=== PATIENT | female | born 1945 | race Caucasian/White ===

== ENCOUNTER 2021-11-08 19:28 | Inpatient (IN) | payer MEDICARE, MEDICAID ==
[~2021-11-08] VITALS: Ht 157.5 cm; Wt 78.9 kg
[~2021-11-08 19:28] MED LIST: [UNRECOGNIZED DRUG - REMARK] PO
[2021-11-08] MEDS ORDERED: FURO40 PO (20:15)
[2021-11-08] MEDS ORDERED: AMLO-257 PO (20:15)
[2021-11-08] MEDS ORDERED: APIX5TAB PO (20:15)
[2021-11-08] MEDS ORDERED: METH-387 PO (20:15)
[2021-11-08] MEDS ORDERED: LOSA-382 PO (20:15)
[2021-11-08] MEDS ORDERED: TRAM50TA4 PO (20:15)
[2021-11-08] MEDS ORDERED: MECL-160 PO (20:15)
[2021-11-08] MEDS ORDERED: CARV3 PO (20:15)
[2021-11-08] MEDS ORDERED: DIAZ2 PO (20:15)
[2021-11-08 20:31] LABS: BASOPHILS % (AUTO) 1.1 % (0.0-2.0); HEMATOCRIT 38.1 % (36-46); LYMPHOCYTES # (AUTO) 2.6 K/uL (1.0-4.8); MEAN CORPUSCULAR HEMOGLOBIN 29.6 pg (26.0-34.0); MEAN CORPUSCULAR HGB CONC 34.1 G/dL (31.0-37.0); MEAN CORPUSCULAR VOLUME 87 fL (80-100); MONOCYTES # (AUTO) 0.3 K/uL (0.1-1.0); MONOCYTES % (AUTO) 6.4 % (2.0-9.0); NEUTROPHILS # (AUTO) 1.5 K/uL (1.8-7.7); NEUTROPHILS % (AUTO) 33.5 % (40.0-70.0); PLATELET COUNT (AUTO) 117 K/uL (150-450); RED BLOOD CELL COUNT(AUTO) 4.39 MIL/uL (4.00-5.20); RED CELL DISTRIBUTION WIDTH 20.3 % (11.5-14.5)
[2021-11-08 20:52] LABS: ALBUMIN 2.9 g/dL (3.4-5.0); BILIRUBIN,TOTAL 1.8 mg/dL (0.1-1.0); CALCIUM, TOTAL 8.9 mg/dL (8.8-10.5); THYROID STIMULATING HORMONE 157.84 uIU/mL (0.36-3.74); TOTAL PROTEIN, SERUM 7.3 g/dL (6.4-8.2)
[2021-11-08 21:06] LABS: POTASSIUM 2.7 mmol/L (3.5-5.1)
[2021-11-08] MEDS ORDERED: POTASSIUM CHLORIDE 20 MEQ ER TABLET PO PRN (21:15)
[2021-11-08] MEDS ORDERED: ACETAMINOPHEN 325 MG TABLET PO PRN (21:15)
[2021-11-08] MEDS ORDERED: ONDANSETRON HCL 4 MG/2 ML VIAL IVP PRN (21:15)
[2021-11-08 21:54] LABS: COVID AG,FIA SOURCE NASOPHARYNGEAL
[2021-11-08 22:06] LABS: APPEARANCE,URINE HAZY (CLEAR); BILIRUBIN,URINE NEGATIVE (NEGATIVE); GLUCOSE, URINE (UA) NEGATIVE (NEGATIVE); KETONES,URINE NEGATIVE (NEGATIVE); LEUKOCYTE ESTERASE ,URINE MODERATE (NEGATIVE); NITRATE,URINE NEGATIVE (NEGATIVE); OCCULT BLOOD,URINE SMALL (NEGATIVE); PROTEIN,URINE NEGATIVE (NEGATIVE); SPECIFIC GRAVITIY, URINE 1.016 (1.003-1.030)
[2021-11-08 22:13] LABS: AMPHET/METH SCREEN,URINE NEGATIVE (NEGATIVE); BARBITURATE SCREEN, URINE NEGATIVE (NEGATIVE); BENZODIAZEPINES SCREEN,URINE NEGATIVE (NEGATIVE); CANNABINOID SCREEN,URINE NEGATIVE (NEGATIVE); COCAINE SCREEN,URINE NEGATIVE (NEGATIVE); METHADONE SCREEN, URINE NEGATIVE (NEGATIVE); OPIATE SCREEN,URINE NEGATIVE (NEGATIVE)
[2021-11-08 22:14] LABS: PHENCYCLIDINE SCREEN,URINE NEGATIVE (NEGATIVE)
[2021-11-08] MEDS ORDERED: SODIUM CHLORIDE 0.9% 1,000 ML ONE (22:26)
[2021-11-08 22:28] LABS: RBC,URINE 0-2 /HPF (0-2)
[2021-11-08 22:29] LABS: BACTERIA,URINE Many /HPF (None Seen); SQUAMOUS EPITHELIAL CELL,UR Rare /LPF (None Seen)
[2021-11-08 22:55] VITALS: BP 124/55
[2021-11-08] MEDS: POTASSIUM CHL 10 MEQ/WATER 50 ML IV PRN (23:04)
[2021-11-09] MEDS: POTASSIUM CHL 10 MEQ/WATER 50 ML IV PRN ×3 (00:48→04:58)
[2021-11-09 03:47] VITALS: BP 107/50
[2021-11-09] MEDS ORDERED: SODIUM CHLORIDE 0.9% 250 ML IV ONE (03:56)
[2021-11-09 08:06] VITALS: BP 100/56
[2021-11-09] MEDS ORDERED: MORPHINE SULFATE 2 MG/ML SYRINGE IVP PRN (09:00)
[2021-11-09] MEDS ORDERED: HEPARIN SODIUM,PORCINE 5,000 UNITS/ML VIAL SQ SCH (09:00)
[2021-11-09] MEDS ORDERED: ACETAMINOPHEN 325 MG TABLET PO PRN (09:00)
[2021-11-09] MEDS ORDERED: IPRATROPIUM BROMIDE 0.5 MG/2.5 ML NEB SOLUTION NEB PRN (09:00)
[2021-11-09] MEDS ORDERED: ALBUTEROL SULFATE 2.5 MG/0.5 ML NEB SOLUTION NEB PRN (09:00)
[2021-11-09] MEDS ORDERED: HYDROCODONE/ACETAMINOPHEN 5-325 MG TABLET PO PRN (09:00)
[2021-11-09 09:18] LABS: BASOPHILS % (AUTO) 0.6 % (0.0-2.0); HEMATOCRIT 36.2 % (36-46); HEMOGLOBIN 12.2 g/dL (12.0-16.0); LYMPHOCYTES # (AUTO) 2.9 K/uL (1.0-4.8); LYMPHOCYTES % (AUTO) 58.5 % (22.0-44.0); MEAN CORPUSCULAR HGB CONC 33.8 G/dL (31.0-37.0); MEAN CORPUSCULAR VOLUME 89 fL (80-100); MONOCYTES # (AUTO) 0.3 K/uL (0.1-1.0); MONOCYTES % (AUTO) 6.2 % (2.0-9.0); NEUTROPHILS # (AUTO) 1.7 K/uL (1.8-7.7); NEUTROPHILS % (AUTO) 33.7 % (40.0-70.0); RED BLOOD CELL COUNT(AUTO) 4.07 MIL/uL (4.00-5.20); RED CELL DISTRIBUTION WIDTH 20.6 % (11.5-14.5)
[2021-11-09 09:19] LABS: PLATELET COUNT (AUTO) 101 K/uL (150-450)
[2021-11-09 09:27] LABS: ALBUMIN 2.6 g/dL (3.4-5.0); BILIRUBIN,TOTAL 1.3 mg/dL (0.1-1.0); CALCIUM, TOTAL 8.4 mg/dL (8.8-10.5); CREATININE 1.53 mg/dL (0.60-1.30); MAGNESIUM 2.1 mg/dL (1.80-2.40); POTASSIUM 3.3 mmol/L (3.5-5.1); TOTAL PROTEIN, SERUM 6.7 g/dL (6.4-8.2)
[2021-11-09] MEDS ORDERED: PROPYLTHIOURACIL 50 MG TABLET PO ONE (10:00)
[2021-11-09] MEDS: HYDROCORTISONE SOD SUCC 100 MG/2 ML VIAL IVP SCH ×2 (10:39→16:14)
[2021-11-09] MEDS: DOCUSATE SODIUM 100 MG CAPSULE PO SCH ×2 (10:39→20:36)
[2021-11-09] MEDS: PANTOPRAZOLE SODIUM 40 MG DR TABLET PO SCH (10:39)
[2021-11-09] MEDS: SODIUM CHLORIDE 0.9% 1,000 ML IV SCH ×2 (10:41→23:02)
[2021-11-09] MEDS ORDERED: LEVOTHYROXINE SODIUM 200 MCG TABLET PO SCH (11:30)
[2021-11-09 11:56] VITALS: BP 122/52
[2021-11-09] MEDS: METHIMAZOLE 10 MG TABLET PO SCH ×3 (12:36→20:36)
[2021-11-09] MEDS ORDERED: ONDANSETRON HCL 4 MG/2 ML VIAL IVP PRN (14:30)
[2021-11-09] MEDS ORDERED: IBUPROFEN 600 MG TABLET PO PRN ×2 (14:30→15:30)
[2021-11-09] MEDS ORDERED: POTASSIUM CHL 10 MEQ/WATER 50 ML IV PRN (14:30)
[2021-11-09] MEDS ORDERED: POTASSIUM CHLORIDE 20 MEQ ER TABLET PO PRN (14:30)
[2021-11-09] MEDS ORDERED: OMEP20CA13 PO (14:34)
[2021-11-09 15:21] VITALS: BP 127/51
[2021-11-09] MEDS ORDERED: TraMADol HCL 50 MG TABLET PO PRN (17:45)
[2021-11-09 19:50] VITALS: BP 123/58
[2021-11-09] MEDS: APIXABAN 5 MG TABLET PO SCH (20:36)
[2021-11-09] MEDS: MELATONIN 3 MG TABLET PO PRN (21:47)
[2021-11-09 23:30] VITALS: BP 120/60
[2021-11-10] MEDS: HYDROCORTISONE SOD SUCC 100 MG/2 ML VIAL IVP SCH ×3 (00:27→15:48)
[2021-11-10 04:15] VITALS: BP 118/62
[2021-11-10 06:15] LABS: BASOPHILS % (AUTO) 0.2 % (0.0-2.0); EOSINOPHILS % (AUTO) 0.2 % (1.0-6.0); HEMATOCRIT 34.8 % (36-46); HEMOGLOBIN 11.9 g/dL (12.0-16.0); LYMPHOCYTES # (AUTO) 1.2 K/uL (1.0-4.8); LYMPHOCYTES % (AUTO) 29.6 % (22.0-44.0); MEAN CORPUSCULAR HEMOGLOBIN 30.2 pg (26.0-34.0); MEAN CORPUSCULAR HGB CONC 34.3 G/dL (31.0-37.0); MEAN CORPUSCULAR VOLUME 88 fL (80-100); MONOCYTES # (AUTO) 0.1 K/uL (0.1-1.0); NEUTROPHILS # (AUTO) 2.8 K/uL (1.8-7.7); RED BLOOD CELL COUNT(AUTO) 3.95 MIL/uL (4.00-5.20); RED CELL DISTRIBUTION WIDTH 20.5 % (11.5-14.5)
[2021-11-10 06:37] LABS: HEMOGLOBIN A1C 5.7 % (3.8-5.6)
[2021-11-10 07:02] LABS: ALANINE AMINOTRANSFERASE 11 U/L (12-78); ALBUMIN 2.5 g/dL (3.4-5.0); ALKALINE PHOSPHATASE 62 U/L (46-116); ANION GAP 8 mmol/L (8-16); ASPARTATE AMINOTRANSFERASE 28 U/L (15-37); BILIRUBIN,TOTAL 1.2 mg/dL (0.1-1.0); CALCIUM, TOTAL 8.5 mg/dL (8.8-10.5); CARBON DIOXIDE 27 mmol/L (22-29); CHLORIDE 105 mmol/L (98-107); CREATININE 1.42 mg/dL (0.60-1.30); GLOMERULAR FILTR. RATE CALC 36 mL/min (>60); GLUCOSE,RANDOM 112 mg/dL (70-110); PHOSPHORUS 3.2 mg/dL (2.5-4.9); POTASSIUM 3.9 mmol/L (3.5-5.1); SODIUM SERUM 140 mmol/L (136-145); TOTAL PROTEIN, SERUM 6.6 g/dL (6.4-8.2); UREA NITROGEN, BLOOD 19 mg/dL (7-18)
[2021-11-10 07:48] VITALS: BP 111/63
[2021-11-10] MEDS: CefTRIAXone 1 GM/DEXTROSE 50 ML IV SCH (08:10)
[2021-11-10] MEDS: APIXABAN 5 MG TABLET PO SCH ×2 (08:11→20:22)
[2021-11-10] MEDS: METHIMAZOLE 10 MG TABLET PO SCH ×2 (08:11→13:00)
[2021-11-10] MEDS: DOCUSATE SODIUM 100 MG CAPSULE PO SCH ×2 (08:11→20:22)
[2021-11-10] MEDS: PANTOPRAZOLE SODIUM 40 MG DR TABLET PO SCH (08:11)
[2021-11-10 08:46] LABS: PLATELET COUNT (AUTO) 88 K/uL (150-450)
[2021-11-10 10:48] LABS: FREE T4 (FREE THYROXINE) < 0.10 ng/dL (0.76-1.46); THYROID STIMULATING HORMONE 65.08 uIU/mL (0.36-3.74)
[2021-11-10 11:23] VITALS: BP 112/55
[2021-11-10] MEDS: SODIUM CHLORIDE 0.9% 1,000 ML IV SCH (12:53)
[2021-11-10] MEDS: LEVOTHYROXINE SODIUM 200 MCG TABLET PO SCH (15:48)
[2021-11-10 16:09] VITALS: BP 95/50
[2021-11-10 19:15] VITALS: BP 102/49
[2021-11-10] MEDS: MELATONIN 3 MG TABLET PO PRN (21:08)
[2021-11-10 23:30] VITALS: BP 99/61
[2021-11-11] MEDS: HYDROCORTISONE SOD SUCC 100 MG/2 ML VIAL IVP SCH ×3 (00:07→15:24)
[2021-11-11] MEDS: SODIUM CHLORIDE 0.9% 1,000 ML IV SCH ×2 (01:41→14:34)
[2021-11-11] MEDS: LEVOTHYROXINE SODIUM 200 MCG TABLET PO SCH (05:59)
[2021-11-11 06:12] VITALS: BP 104/64
[2021-11-11 07:12] LABS: BASOPHILS % (AUTO) 0.1 % (0.0-2.0); EOSINOPHILS % (AUTO) 0 % (1.0-6.0); HEMATOCRIT 37.3 % (36-46); HEMOGLOBIN 12.3 g/dL (12.0-16.0); LYMPHOCYTES # (AUTO) 1.5 K/uL (1.0-4.8); LYMPHOCYTES % (AUTO) 18.5 % (22.0-44.0); MEAN CORPUSCULAR HEMOGLOBIN 29.4 pg (26.0-34.0); MEAN CORPUSCULAR VOLUME 89 fL (80-100); MONOCYTES # (AUTO) 0.2 K/uL (0.1-1.0); MONOCYTES % (AUTO) 2.6 % (2.0-9.0); NEUTROPHILS # (AUTO) 6.3 K/uL (1.8-7.7); NEUTROPHILS % (AUTO) 78.8 % (40.0-70.0); RED BLOOD CELL COUNT(AUTO) 4.19 MIL/uL (4.00-5.20); RED CELL DISTRIBUTION WIDTH 20.4 % (11.5-14.5)
[2021-11-11 07:31] VITALS: BP 110/68
[2021-11-11 07:59] LABS: ALBUMIN 2.4 g/dL (3.4-5.0); BILIRUBIN,TOTAL 0.7 mg/dL (0.1-1.0); CALCIUM, TOTAL 8.4 mg/dL (8.8-10.5); CREATININE 1.42 mg/dL (0.60-1.30); MAGNESIUM 1.8 mg/dL (1.80-2.40); TOTAL PROTEIN, SERUM 6.5 g/dL (6.4-8.2)
[2021-11-11] MEDS: CefTRIAXone 1 GM/DEXTROSE 50 ML IV SCH (08:01)
[2021-11-11] MEDS: DOCUSATE SODIUM 100 MG CAPSULE PO SCH ×2 (08:03→20:27)
[2021-11-11] MEDS: APIXABAN 5 MG TABLET PO SCH ×2 (08:03→20:27)
[2021-11-11] MEDS: PANTOPRAZOLE SODIUM 40 MG DR TABLET PO SCH (08:03)
[2021-11-11 09:07] LABS: PLATELET COUNT (AUTO) 63 K/uL (150-450)
[2021-11-11] MEDS ORDERED: DENTURE ADHESIVE 68 GM CREAM DT PRN (09:15)
[2021-11-11 11:42] VITALS: BP 114/56
[2021-11-11 15:38] VITALS: BP 122/48
[2021-11-11 19:43] VITALS: BP 130/67
[2021-11-11] MEDS: MELATONIN 3 MG TABLET PO PRN (20:27)
[2021-11-11] MEDS: DIAZEPAM 2 MG TABLET PO PRN (20:27)
[2021-11-12] MEDS: HYDROCORTISONE SOD SUCC 100 MG/2 ML VIAL IVP SCH ×4 (00:48→23:35)
[2021-11-12] MEDS: SODIUM CHLORIDE 0.9% 1,000 ML IV SCH ×2 (04:17→18:06)
[2021-11-12 05:10] VITALS: BP 121/69
[2021-11-12] MEDS: LEVOTHYROXINE SODIUM 200 MCG TABLET PO SCH (06:34)
[2021-11-12] MEDS: CefTRIAXone 1 GM/DEXTROSE 50 ML IV SCH (08:09)
[2021-11-12] MEDS: APIXABAN 5 MG TABLET PO SCH ×2 (08:10→21:35)
[2021-11-12] MEDS: PANTOPRAZOLE SODIUM 40 MG DR TABLET PO SCH (08:10)
[2021-11-12] MEDS: DOCUSATE SODIUM 100 MG CAPSULE PO SCH ×2 (08:10→21:35)
[2021-11-12 08:15] VITALS: BP 113/55
[2021-11-12 10:27] VITALS: BP 123/79
[2021-11-12 11:15] LABS: BASOPHILS % (AUTO) 0.1 % (0.0-2.0); EOSINOPHILS % (AUTO) 0 % (1.0-6.0); HEMATOCRIT 34.7 % (36-46); HEMOGLOBIN 11.7 g/dL (12.0-16.0); LYMPHOCYTES % (AUTO) 15.2 % (22.0-44.0); MEAN CORPUSCULAR HEMOGLOBIN 29.9 pg (26.0-34.0); MEAN CORPUSCULAR HGB CONC 33.7 G/dL (31.0-37.0); MEAN CORPUSCULAR VOLUME 89 fL (80-100); MONOCYTES # (AUTO) 0.2 K/uL (0.1-1.0); MONOCYTES % (AUTO) 2.8 % (2.0-9.0); NEUTROPHILS # (AUTO) 5.5 K/uL (1.8-7.7); NEUTROPHILS % (AUTO) 81.9 % (40.0-70.0); PLATELET COUNT (AUTO) 96 K/uL (150-450); RED BLOOD CELL COUNT(AUTO) 3.91 MIL/uL (4.00-5.20); RED CELL DISTRIBUTION WIDTH 20.7 % (11.5-14.5)
[2021-11-12 12:11] LABS: ALBUMIN 2.4 g/dL (3.4-5.0); BILIRUBIN,TOTAL 0.5 mg/dL (0.1-1.0); CALCIUM, TOTAL 8.4 mg/dL (8.8-10.5); CREATININE 1.28 mg/dL (0.60-1.30); MAGNESIUM 1.7 mg/dL (1.80-2.40); THYROID STIMULATING HORMONE 59.13 uIU/mL (0.36-3.74); TOTAL PROTEIN, SERUM 6.6 g/dL (6.4-8.2)
[2021-11-12 15:54] VITALS: BP 116/70
[2021-11-12 20:26] VITALS: BP 120/76
[2021-11-12] MEDS ORDERED: MAGNESIUM SULFATE 2 GM/WATER 50 ML IV ONE (21:30)
[2021-11-12] MEDS: DIAZEPAM 2 MG TABLET PO PRN (21:35)
[2021-11-12 23:02] VITALS: BP 111/73
[2021-11-13 04:46] VITALS: BP 115/71
[2021-11-13] MEDS: LEVOTHYROXINE SODIUM 200 MCG TABLET PO SCH (05:33)
[2021-11-13 07:02] VITALS: BP 140/66
[2021-11-13] MEDS: HYDROCORTISONE SOD SUCC 100 MG/2 ML VIAL IVP SCH ×2 (09:10→17:23)
[2021-11-13] MEDS: PANTOPRAZOLE SODIUM 40 MG DR TABLET PO SCH (09:11)
[2021-11-13] MEDS: DOCUSATE SODIUM 100 MG CAPSULE PO SCH ×2 (09:11→21:17)
[2021-11-13] MEDS: APIXABAN 5 MG TABLET PO SCH ×2 (09:11→21:17)
[2021-11-13] MEDS: CefTRIAXone 1 GM/DEXTROSE 50 ML IV SCH (09:11)
[2021-11-13] MEDS: SODIUM CHLORIDE 0.9% 1,000 ML IV SCH (09:21)
[2021-11-13 11:20] VITALS: BP 123/69
[2021-11-13 15:47] VITALS: BP 109/67
[2021-11-13 20:01] VITALS: BP 142/73
[2021-11-13] MEDS: DIAZEPAM 2 MG TABLET PO PRN (21:18)
[2021-11-14 00:14] VITALS: BP 135/68
[2021-11-14] MEDS: HYDROCORTISONE SOD SUCC 100 MG/2 ML VIAL IVP SCH ×2 (00:47→08:25)
[2021-11-14] MEDS: SODIUM CHLORIDE 0.9% 1,000 ML IV SCH ×2 (00:53→08:25)
[2021-11-14 04:20] VITALS: BP 132/76
[2021-11-14] MEDS: LEVOTHYROXINE SODIUM 200 MCG TABLET PO SCH (06:13)
[2021-11-14 07:54] VITALS: BP 133/72
[2021-11-14] MEDS: CefTRIAXone 1 GM/DEXTROSE 50 ML IV SCH (08:25)
[2021-11-14] MEDS: APIXABAN 5 MG TABLET PO SCH (08:26)
[2021-11-14] MEDS: PANTOPRAZOLE SODIUM 40 MG DR TABLET PO SCH (08:26)
[2021-11-14] MEDS: DOCUSATE SODIUM 100 MG CAPSULE PO SCH (08:26)
[2021-11-14 11:20] VITALS: BP 132/67
== END 2021-11-14 13:45 | disposition home health service (06) | DRG 643 ==
LOC: EMS 19:35 → 5S 21:23
PROVIDERS: ADMIT Internal Medicine; ATTEND Internal Medicine
DX: E05.01 Thyrotoxicosis with diffuse goiter with thyrotoxic crisis or storm (principal); N17.0 Acute kidney failure with tubular necrosis; N39.0 Urinary tract infection, site not specified; I13.0 Hypertensive heart and chronic kidney disease with heart failure and stage 1 through stage 4 chronic kidney disease, or unspecified chronic kidney disease; R00.1 Bradycardia, unspecified; E87.6 Hypokalemia; I48.91 Unspecified atrial fibrillation; D69.6 Thrombocytopenia, unspecified; K21.9 Gastro-esophageal reflux disease without esophagitis; R94.6 Abnormal results of thyroid function studies; I50.9 Heart failure, unspecified; N18.9 Chronic kidney disease, unspecified; Z80.8 Family history of malignant neoplasm of other organs or systems; Z82.49 Family history of ischemic heart disease and other diseases of the circulatory system; Z88.8 Allergy status to other drugs, medicaments and biological substances; Z91.018 Allergy to other foods
CPT/HCPCS: 51702; 70450; 71045; 80053; 81001; 83036; 83735; 84100; 84132; 84439; 84443; 84481; 84484; 85025; 87086; 93005; 93306; 97110; 97112; 97116; 97162; 97167; 97530; 97535; 99291; J0696; J1644; J1720; J2270; J2405; J3475; J3480; J7030; J7050; 36415-L1; 36415-TC